=== PATIENT | female | born 1965 | race Caucasian/White ===

== ENCOUNTER 2017-04-22 15:28 | Emergency (ER) | payer OTHER ==
[~2017-04-22] VITALS: Ht 165.1 cm; Wt 61.4 kg
[2017-04-22 15:34] VITALS: BP 138/85; PULSE 86; RESP 14; O2SAT 100
--- NOTE | 2017-04-22 15:42 | ED.REPORT ---
HPI-General Illness Date of Service Apr 22, 2017 ED Provider: Raul Serna M.D The pt is a 52 y/o female who presents to the ED complaining of redness to the left lower leg associated with pain, first noticed at 0330 today. The pain is sharp, rated at 6/10. The pain is worsened when touching or during movement. The pt took ibuprofen for the pain to some relief. She denies, SOB, numbness, tingling, chest pain, hematochezia, hematuria, fever, chills, abdominal pain, blurred vision, or any other symptoms at this time. Nursing Notes Stated Complaint: LEFT LEG SWELLING, SENT FROM Chief Complaint: Extremity Trauma Nursing Notes Reviewed: Yes Allergies: Coded Allergies: No Known Allergies (Unverified , 04/22/17) General Time Seen by MD: 17:46 Chief Complaint Rash (left leg) Hx Obtained From: Patient Arrived By: Walk-in Sudden in Onset?: Yes Onset Occurred: 13 - 16 hours ago Symptom Duration: Since onset Location: : Leg left Quality: Sharp Radiation: : Does not radiate Severity: Current: Mild Severity: Maximum: Mild Recent Healthcare: No recent hospitalization, Recent doctor visit Similar Sx Previous: Yes Past Medical History Past Medical History concern for osteoporosis known in family but not diagnosed in family. osteopenia central tremor Past Surgical History Denied Smoking History Never Smoker Social History Alcohol Use: "Social" Drug Use: Denies drug use Ambulatory Status Independent Review of Systems Full Review of Systems Constitutional: Denies: Chills, Fever Eyes: Denies: Blurred bilateral Ears / Nose / Throat: Denies: Sore throat Respiratory: Denies: Non-productive cough Cardiovascular: Denies: Chest pain GI: Denies: Abdominal pain, Diarrhea, Hematochezia, Nausea, Vomiting Female: Denies: Hematuria Skin: Reports Rash, Reports Swelling Neurologic: Denies: Headache, Numbness, Slurred speech Complete sys rev & neg: except as marked. Physical Exam General: Well appearing, no acute distress HEENT: mucous membranes moist Pulm: Speaking comfortably with unlabored respirations, no respiratory distress Card: Regular rate, good peripheral perfusion Abd: Soft, nontender, nondistended Skin: Warm and dry, 4x2cm erythema at medial aspect of proximal left calf with knot present. Neurovascularly intact distally to this. Psych: Appropriate mood and affect. Behavior appears normal. Neuro: AOx3, strength and sensation to light touch grossly intact throughout. Extremities: Moving all extremities Vital Signs Vital Signs Date Time Temp Pulse Resp B/P Pulse Ox O2 Delivery O2 Flow Rate FiO2 04/22/17 15:34 36.6 86 14 138/85 100 Room Air Initial VS: Reviewed Interpretation & Diagnostics US Focused Lower Ext Venous IMPRESSION: No visualized deep venous tendinosis. Small focus of superficial venous thrombosis is noted. Dictated by: Ling Frank M.D. on 04/22/2017 at 18:00 Exam Performed by: Radiologist Exam Type: Diagnostic Exam Interpreted by: Radiologist Re-Eval/Medical Decision Med Decision/Clinical Course In summary, 52-year-old female presenting to the ED for evaluation of swelling to the proximal left lower leg noticed earlier today. She has some pain around this area. Differential includes DVT, superficial thrombus/thrombophlebitis, cellulitis. No systemic symptoms including no fever; vitals here grossly within normal limits. No shortness of breath. Ultrasound obtained and does not demonstrate any evidence of DVT, however there is a superficial clot; suspect that this may be superficial thrombophlebitis. No indication for anticoagulation at this time. Plan discharge home with instructions for warm compresses, ibuprofen, keeping her extremity elevated, and follow-up with her PCP in the next 1-2 days. Very careful return precautions were discussed. Patient agreeable to the plan as stated, no further questions. Source of Hx: Old records Time of Eval: 17:52 Patient Status: Condition unchanged Re-Evaluation/Progress Note: Pt rechecked. Informed pt of diagnosis and plan for discharge. The pt understands and agrees with plan for discharge. F/U instructions and RTER warnings given. All questions addressed at this time. Counseled Regarding: Diagnosis, Lab results, Need for follow-up, When/why to return to ED Discharge & Departure Primary Impression: Superficial thrombophlebitis Superficial thrombophlebitis-Involved body area: lower extremity Laterality: left Qualified Code: I80.02 - Phlebitis and thrombophlebitis of superficial vessels of left lower extremity Disposition: Home Discharge Condition All VS Reviewed: Yes Condition: Stable Patient Instructions: Superficial Thrombophlebitis (ED) Additional Instructions: Thank you for allowing us to be a part of your care in the ED today. Your emergency department results are reassuring. I do not think that there is an emergent cause for your symptoms today that would require admission to the hospital. Elevate your left leg, take ibuprofen, and use warm compresses to relieve pain and redness. Please schedule a follow up appointment with your newly assigned primary care physician tomorrow for a recheck. Please return to the emergency department for any new or worsening symptoms including any increasing redness, swelling, pain in your leg, nausea, vomiting, abdominal pain, shortness of breath, chest pain, one sided weakness/numbness, fevers, or chills, or if there's anything else of concern to you. Referrals: Ilana Hammond MD (PCP) Terell Downey DO [facility] Scribe Attestation Portions of this note were transcribed by Rj Goodwin and Scott Mckoy. I, Dr. Raul Serna personally performed the history, physical exam and medical decision-making; I reviewed and confirmed the accuracy of the information in the transcribed note. Signed by: Eugenio Parr, 04/22/17. copies to: Ilana Hammond MD; Terell Downey DO; [facility] Raul Serna MD Apr 22, 2017 15:42 Rj Godowin Apr 22, 2017 17:50
--- NOTE | 2017-04-22 18:03 | DRSVH ---
PROCEDURE: US VEINOUS LEG DUPLEX UNILATERAL, LEFT INDICATIONS: leg pain, swelling; eval DVT vs other abnl TECHNIQUE: Real-time imaging, as well as color and pulse Doppler interrogation, were performed of the lower extr emity deep veins from the inguinal ligament to the popliteal fossa. COMPARISON: None. FINDINGS: The deep veins are normally compressible, and free of intraluminal thrombus. Color and pu lse Doppler demonstrate normal phasic intraluminal flow. There is normal augmentation response to di stal compression maneuver. There is a focal area of heteroechogenicity at the area of palpable david rn in the upper calf within a superficial vein. IMPRESSION: No visualized deep venous tendinosis. Small focus of superficial venous thrombosis is not ed. Dictated by: Ling Frank M.D. on 04/22/2017 at 18:00 Approved by: Ling Frank M.D. on 04/22/2017 at 18:01
== END 2017-04-22 18:45 | disposition home or self-care (01) ==
LOC: SED 15:28
DX: I80.02 Phlebitis and thrombophlebitis of superficial vessels of left lower extremity (principal)